=== PATIENT | male | born 1950 | race Caucasian/White ===

== ENCOUNTER 2017-06-21 16:47 | Emergency (ER) | payer OTHER, SELFPAY ==
[2017-06-21 16:48] VITALS: BP 155/90; PULSE 74; RESP 18; TEMP 36.6; O2SAT 98; BMI 32.8
--- NOTE | 2017-06-21 17:20 | ED.DCSUM_ITS ---
- ER Visit Summary Date of Service: 06/21/17 Chief Complaint: Neck and upper back pain History of Present Illness: The patient is a 66 M who presents for 1 week of gradually worsening upper back and neck pain. 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 The next day he began having pain between his shoulder blades that is gradually worsened, now radiating up into the neck and the base of the right occiput. Patient has pain and stiffness with neck extension and lateral rotation bilaterally. Also pain and stiffness with raising arms above the head. Pain is a pinching sensation, worse with movement between the shoulder blades. No fever, visual changes, chest pain, shortness of breath, abdominal pain, nausea or vomiting, bowel or bladder complaints, arm or leg weakness or paresthesias. he has a history of L5 surgery. He has had prior similar back pain but not severe. Physical Examination: Vital signs: afebrile, hemodynamically stable, no hypoxia on room air General: well nourished, well developed, in no distress Skin: warm, dry, no rash, no pallor HEENT: normocephalic and atraumatic; PERRL, EOMI, moist mucous membranes Cardiovascular: regular rate and rhythm without murmurs, no peripheral edema, 2 + pulses all distal extremities chest is nontender Respiratory: No increased work of breathing, lungs are clear to auscultation bilaterally, no rales, rhonchi or wheezing Abdominal: Abdomen is soft, nontender with normoactive bowel sounds, no guarding or rebound, no masses Neck and back: Point tenderness to the base of the right occiput with paraspinal right-sided tenderness in the C-spine region. Full active flexion but limited extension and rotation due to pain. Tenderness to palpation of the bilateral paraspinal musculature in the thoracic back and in the shoulder blade region on the left. MSK: Moves all extremities, no deformities, normal strength Neuro: Awake and alert, oriented ?4. No facial droop, sensation and motor function intact and symmetric Test Results: [] Emergency Department Course and Treatment: Patient's history and examination is consistent with a musculoskeletal source of his neck and back pain. There is no finding on history or exam concerning for acute coronary syndrome, lung pathology, aortic dissection or aneurysm, or carotid or vertebral artery dissection. Patient's symptoms are very reproducible and diffuse musculoskeletal in distribution. Patient has been taking Excedrin without relief. He will continue applying ice. He will also use NSAIDs and was given a prescription for Valium for muscle relaxant. First dose is given in the emergency department. Patient has a chiropractor and will follow up this week. Return precautions given. Discharge home. Treatment Plan: [] Disposition: [] Impression: cervical and thoracic strain This note was generated with [employer] dictation software. It may contain incorrect words, spelling, and punctuation that were not noted in review of the chart prior to signing ED Disposition - Plan for ED Patient: Chief Complaint: Back
--- NOTE | 2017-06-21 17:20 | ED.DEP ---
ED Disposition - Plan for ED Patient: Disposition: Home or Assisted Living Chief Complaint: Back Instructions: ED Neck Back Pain General Prescriptions: Naproxen 500 mg PO BID #20 tablet. Diazepam [Valium] 5 mg PO TID PRN 5 Days #15 tab PRN Reason: Muscle Spasm Additional Instructions: Please use the valium for muscle relaxation. Do not drive or do any dangerous activities while on this medicine, as it may make you sleepy or loopy. Use anti-inflammatory pain medication for pain and discomfort. Follow up with your chiropractor this week and your family doctor if you do not have improvement in 1-2 weeks.
[2017-06-21] MEDS: diazePAM 5 MG Tablet PO (17:21)
[2017-06-21] MEDS: Ketorolac 30 MG/ML Syringe IM (17:21)
--- NOTE | 2017-06-21 17:23 | DCINST.ED_ITS ---
ED Disposition - Plan for ED Patient: Disposition: Home or Assisted Living Chief Complaint: Back Instructions: ED Neck Back Pain General Prescriptions: Naproxen 500 mg PO BID #20 tablet. Diazepam [Valium] 5 mg PO TID PRN 5 Days #15 tab PRN Reason: Muscle Spasm Additional Instructions: Please use the valium for muscle relaxation. Do not drive or do any dangerous activities while on this medicine, as it may make you sleepy or loopy. Use anti- inflammatory pain medication for pain and discomfort. Follow up with your chiropractor this week and your family doctor if you do not have improvement in 1-2 weeks.
[2017-06-21 17:45] VITALS: BP 133/78; PULSE 84; RESP 14; O2SAT 95
== END 2017-06-21 17:47 | disposition home or self-care (01) ==
PROVIDERS: Emergency Provider Emergency Medicine; Family Provider Family Medicine; PCP Family Medicine
DX: S16.1XXA Strain of muscle, fascia and tendon at neck level, initial encounter (principal); S29.012A Strain of muscle and tendon of back wall of thorax, initial encounter; X50.1XXA Overexertion from prolonged static or awkward postures, initial encounter; Y93.89 Activity, other specified; Y92.9 Unspecified place or not applicable; I10 Essential (primary) hypertension; M06.9 Rheumatoid arthritis, unspecified; Z79.82 Long term (current) use of aspirin; Z79.899 Other long term (current) drug therapy
CPT/HCPCS: 96372; 99282